=== PATIENT | female | born 1950 | race Caucasian/White ===

== ENCOUNTER → 2017-09-16 14:18 | Outpatient (CLI) | payer MEDICARE, SELFPAY ==
--- NOTE | 2017-09-16 14:30 | XR_ITS ---
XR ankle RT min 3V HISTORY: Severe left ankle pain ORDERING PHYSICIAN: Jessie Regalado DPM PATIENT AGE: 67 years COMPARISON: 02/17/2015 FINDINGS: There are severe osteoarthritic changes of the left ankle. There is widening of the distal shaft of the tibia consistent with an old fracture. The talus is tilted laterally with indentation upon the distal aspect of the tibia with loss of joint space and osteophyte formation with flattening of the talar dome. Osteosclerosis of the subtalar joint once again noted There is mild bowing of the distal tibia angled anteriorly. No acute fracture or dislocation evident. No destructive process. IMPRESSION: Deformity of the ankle which may be related to old trauma with posttraumatic severe osteoarthritic change with flattening and osteosclerosis of the talar dome and severe osteoarthritis of the posterior subtalar joint. Overall no significant change from the previous exam
--- NOTE | 2017-09-16 14:30 | XR_ITS ---
XR ankle LT min 3V HISTORY: Pain, ankle pain ORDERING PHYSICIAN: Jessie Regalado DPM PATIENT AGE: 67 years COMPARISON: None FINDINGS: Weightbearing views are performed No fracture or dislocation. No lytic or blastic change. There is normal mineralization.. The joint spaces are well-preserved. No significant degenerative/arthritic changes. No erosive changes evident. IMPRESSION: Negative left ankle, no acute finding
--- NOTE | 2017-09-16 14:30 | XR_ITS ---
XR foot RT min 3V HISTORY: Right foot pain ORDERING PHYSICIAN: Jessie Regalado DPM PATIENT AGE: 67 years COMPARISON: None FINDINGS: Weightbearing views are performed. Moderate hallux valgus with first metatarsophalangeal angle of 36 degrees with mild osteoarthritic changes of the first MTP joint and mild hypertrophic changes of the distal aspect of the first metatarsal. There is an old fracture of the mid aspect of the third third, fourth, and fifth metatarsals. Severe osteoarthritic changes are present at the ankle described in the ankle report. There is osteosclerosis of the mid aspect of the plantar surface of the calcaneus at 8 mm and could be due to bone island. No acute fracture or dislocation. IMPRESSION: 1. Hallux valgus with bunion formation and osteoarthritis of the first MTP joint 2. Old fractures of the third, fourth, and fifth metatarsals
--- NOTE | 2017-09-16 14:30 | XR_ITS ---
XR foot LT min 3V HISTORY: Left foot pain, history of foot surgery ORDERING PHYSICIAN: Jessie Regalado DPM PATIENT AGE: 67 years COMPARISON: 03/30/2016 FINDINGS: Weightbearing views are performed. There has been prior fusion of the first metatarsophalangeal joint with a dorsal bone plate present and apparent fusion of the bony elements. Hypertrophic changes are present at the sesamoid at the distal first metatarsal. Prior osteotomy of the distal aspect of the second and third metatarsals with healing of the osteotomies. Prior fusion of the second and third PIP joints. The distal phalanx of the third digit angles medially. At the fourth toe there is only a proximal distal phalanx. There may been prior fusion at the DIP of the fifth toe. No acute fracture or dislocation. IMPRESSION: Postsurgical changes of the left foot as described above with prior fusion at the first MTP joint and osteotomies at the second and third distal metatarsals. Please see above for detail
== END ==
PROVIDERS: Visit Provider Podiatrist
DX: M79.672 Pain in left foot (principal); M79.671 Pain in right foot; M25.572 Pain in left ankle and joints of left foot; M25.571 Pain in right ankle and joints of right foot
CPT/HCPCS: 73610; 73630

== ENCOUNTER → 2017-12-19 13:39 | Outpatient (CLI) | payer MEDICARE, SELFPAY ==
--- NOTE | 2017-12-19 13:47 | XR_ITS ---
XR hand RT min 3V HISTORY: ITS.REASON: RT FINGER PAIN ORDERING PHYSICIAN: Sheree Valle PATIENT AGE: 67 years Dysplastic changes are present involving the trapezium with osteoarthritis of the first metacarpal carpal joint. There is anterior subluxation of the proximal phalanx of the second, third, and fourth digits. Mild radial angulation involving the distal phalanx at the second third fourth and fifth digits. Osteoarthritic changes are present at the DIPs. No fracture or dislocation. IMPRESSION: Deformity of the hand as described above with anterior subluxation of the proximal phalanx of the second, third, and fourth fingers with osteoarthritis and dysplastic changes of the trapezium
== END ==
PROVIDERS: PCP Nurse Practitioner; Visit Provider Nurse Practitioner
DX: M79.644 Pain in right finger(s) (principal)
CPT/HCPCS: 73130

== ENCOUNTER → 2018-01-17 09:21 | Outpatient (POV) | payer MEDICARE, SELFPAY | PROVIDERS: Family Provider Nurse Practitioner; PCP Nurse Practitioner; Visit Provider Podiatrist | DX: Z00.00 Encounter for general adult medical examination without abnormal findings (principal) ==

== ENCOUNTER → 2018-01-21 13:08 | Outpatient (CLI) | payer MEDICARE, SELFPAY | PROVIDERS: PCP Nurse Practitioner; Visit Provider Orthopaedic Surgery | DX: M65.311 Trigger thumb, right thumb (principal) ==

== ENCOUNTER → 2018-02-04 14:05 | Outpatient (CLI) | payer MEDICARE, SELFPAY ==
--- NOTE | 2018-02-04 14:08 | XR_ITS ---
XR knee RT 4V HISTORY: ITS.REASON: Right knee pain ORDERING PHYSICIAN: Rigoberto Espinal MD PATIENT AGE: 67 years COMPARISON: None FINDINGS: Severe osteoarthritic changes are present at the medial compartment with loss of joint space, osteosclerosis, and mild osteophyte formation. Moderate osteoarthritic changes are present at the patellofemoral joint with small osteophytes. Osteophytes are also present at the medial aspect of the lateral compartment. There is mild valgus angulation of the tibia. Increased soft tissue density is present in the suprapatellar region consistent with knee joint effusion. There is some minimal depression of the medial tibial plateau. IMPRESSION: Severe osteoarthritis of the right knee at the medial compartment with osteoarthritic changes of the patellofemoral joint and small knee joint effusion
== END ==
PROVIDERS: PCP Nurse Practitioner; Visit Provider Orthopaedic Surgery
DX: M25.561 Pain in right knee (principal)
CPT/HCPCS: 73564

== ENCOUNTER → 2018-04-24 10:19 | Outpatient (POV) | payer MEDICARE, SELFPAY | PROVIDERS: Visit Provider Podiatrist | DX: Z00.00 Encounter for general adult medical examination without abnormal findings (principal) ==

== ENCOUNTER → 2018-05-22 09:40 | Outpatient (POV) | payer MEDICARE, SELFPAY | PROVIDERS: Visit Provider Podiatrist | DX: Z00.00 Encounter for general adult medical examination without abnormal findings (principal) ==

== ENCOUNTER → 2018-06-12 11:26 | Outpatient (POV) | payer MEDICARE, SELFPAY | PROVIDERS: Visit Provider Podiatrist | DX: Z00.00 Encounter for general adult medical examination without abnormal findings (principal) ==

== ENCOUNTER → 2018-06-26 09:43 | Outpatient (POV) | payer MEDICARE, SELFPAY | PROVIDERS: Visit Provider Podiatrist | DX: Z00.00 Encounter for general adult medical examination without abnormal findings (principal) ==

== ENCOUNTER → 2018-07-17 09:07 | Outpatient (POV) | payer MEDICARE, SELFPAY | PROVIDERS: Visit Provider Dentist | DX: Z00.00 Encounter for general adult medical examination without abnormal findings (principal) ==

== ENCOUNTER → 2020-05-19 18:21 | Outpatient (CLI) | payer MEDICARE, SELFPAY | PROVIDERS: Visit Provider Nurse Practitioner | DX: L60.2 Onychogryphosis (principal) | CPT/HCPCS: 87070; 87077; 87186; 87205 ==

== ENCOUNTER → 2020-09-26 17:17 | Outpatient (CLI) | payer MEDICARE, SELFPAY ==
[2020-09-26 17:36] LABS: Alanine Aminotransferase 15 U/L (12-78); Albumin Level 4.2 g/dl (3.5-5.0); Alkaline Phosphatase 106 U/L (38-126); Aspartate Amino Transferase 25 U/L (14-36); Bilirubin,Indirect 0.2 mg/dL (0.0-0.9); Bilirubin,Total 0.2 mg/dl (0.2-1.3); Bilirubin,Unconjugated 0.2 mg/dL (0.0-1.1); Blood Urea Nitrogen 14 mg/dl (7-17); Creatine Kinase 39 U/L (30-135); Estimated Glomerular Filt Rate 82 ml/min (>60); GFR (African American) 100 ML/MIN (>60)
[2020-09-26 17:39] LABS: Basophils # 0.1 K/mm3 (0-0.2); Basophils % 1.3 % (0.1-2.0); Eosinophils # 0.2 K/mm3 (0.0-0.4); Eosinophils % 5.4 % (0.1-12.0); Hematocrit 36.8 % (37.0-47.0); Hemoglobin 11.1 g/dL (12.2-16.2); Lymphocytes # 1.4 K/mm3 (0.7-4.5); Lymphocytes % 31.1 % (10-50); Mean Corpuscular HGB Conc 30.1 g/dL (31.8-35.4); Mean Corpuscular Hemoglobin 29.7 pg (27.0-31.2); Mean Corpuscular Volume 98.7 fl (81-99); Mean Platelet Volume 7.4 fl (7.4-10.4); Monocytes # 0.3 K/mm3 (0.1-1.0); Monocytes % 6.9 % (1.7-9.3); Neutrophils # 2.5 K/mm3 (1.8-7.8); Neutrophils % 55.4 % (37.0-80.0); Platelet Count 387 K/mm3 (142-424); Red Blood Count 3.72 M/mm3 (4.20-5.40); Red Cell Distribution Width 23.3 % (11.5-17.5); White Blood Count 4.5 K/mm3 (4.8-10.8)
[2020-09-26 17:41] LABS: C-Reactive Protein 4.1 mg/L (0-4)
== END ==
LOC: LAB 17:17 → LAB.DROPOF 17:21
PROVIDERS: Visit Provider Internal Medicine Infectious Disease
DX: M86.9 Osteomyelitis, unspecified (principal)
CPT/HCPCS: 80076; 82550; 82565; 84520; 85025; 86140

== ENCOUNTER → 2022-10-09 13:39 | Outpatient (CLI) | payer MEDICARE, SELFPAY ==
--- NOTE | 2022-10-09 13:54 | XR_ITS ---
FINAL REPORT TECHNIQUE: Chest PA & Lateral CLINICAL HISTORY: ACUTE Cough since having covid since june 2022, shortness of breath for three to four days. FINDINGS: 2 views of the chest were performed. There is mild cardiomegaly. There is an unfolded aorta. The mediastinum is within normal limits. There is coarse interstitial opacity of both lungs which is probably chronic. There are no pleural effusions. There is no pneumothorax. There is long segment posterior fusion hardware bridging the lower thoracic to mid lumbar spine. IMPRESSION: Coarse interstitial opacities in both lungs, probably chronic. Reviewed, Interpreted and Dictated by Deny Anne MD Transcribed by Trista Chopra Authenticated and [facility]
[2022-10-09 14:51] LABS: Basophils # 0.1 K/mm3 (0-0.2); Basophils % 1.1 % (0.1-2.0); Eosinophils # 0.1 K/mm3 (0.0-0.4); Eosinophils % 2.2 % (0.1-12.0); Hematocrit 21.4 % (37.0-47.0); Lymphocytes # 1.3 K/mm3 (0.7-4.5); Lymphocytes % 24.4 % (10-50); Mean Corpuscular Hemoglobin 20.3 pg (27.0-31.2); Mean Corpuscular Volume 72.6 fl (81-99); Mean Platelet Volume 7.7 fl (7.4-10.4); Monocytes # 0.3 K/mm3 (0.1-1.0); Monocytes % 6.1 % (1.7-9.3); Neutrophils # 3.5 K/mm3 (1.8-7.8); Neutrophils % 66.2 % (37.0-80.0); Platelet Count 600 K/mm3 (142-424); Red Blood Count 2.95 M/mm3 (4.20-5.40); Red Cell Distribution Width 18.2 % (11.5-17.5); White Blood Count 5.3 K/mm3 (4.8-10.8)
[2022-10-09 15:09] LABS: Alanine Aminotransferase 14 U/L (12-78); Albumin Level 3.8 g/dl (3.5-5.0); Albumin/Globulin Ratio 1.5 (1.1-1.8); Alkaline Phosphatase 106 U/L (38-126); Anion Gap 12.4 mEq/L (5-15); Aspartate Amino Transferase 23 U/L (14-36); Bilirubin,Total 0.4 mg/dl (0.2-1.3); Blood Urea Nitrogen 13 mg/dl (7-17); Calcium 8.6 mg/dl (8.4-10.2); Carbon Dioxide 24 mmol/L (22.0-30.0); Chloride 107 mmol/L (98-107); Estimated Glomerular Filt Rate 98 ml/min (>60); GFR (African American) 118 ML/MIN (>60); Globulin 2.6 g/dL (1.3-3.2); Glucose 96 mg/dl (74-100); Potassium 3.4 mmoL/L (3.5-5.1); Sodium 140 mmol/L (136-145); Total Protein,Serum 6.4 g/dl (6.3-8.2)
[2022-10-09 15:19] LABS: NT Pro Brain Natriuretic Pep. 7510 pg/mL (0-125)
[2022-10-09 15:40] LABS: Thyroid Stimulating Hormone 2.93 uIU/mL (0.465-4.68)
== END ==
PROVIDERS: PCP Nurse Practitioner Family; Visit Provider Nurse Practitioner Family
DX: R06.02 Shortness of breath (principal); R01.1 Cardiac murmur, unspecified; R05.1 Acute cough; R60.0 Localized edema
CPT/HCPCS: 36415; 71046; 80053; 83880; 84443; 85025

== ENCOUNTER 2022-10-11 15:52 | Observation (INO) | payer MEDICARE, SELFPAY ==
[2022-10-11] VITALS (16 sets, daily range): BP systolic 115–137; BP diastolic 61–94; PULSE 69–146; RESP 16–20; TEMP 36.4–37; O2SAT 94–98; BMI 23.4; BMI 24.4
--- NOTE | 2022-10-11 16:02 | ECG_ITS ---
APPROVED REPORT Exam: Resting ECG HR:100 bpm ECG Measurements Heart Rate 100 AXES [place] 140 P 53 QRSd 92 QRS 15 QT 353 T 76 QTc 410 Conclusion SINUS TACHYCARDIA WITH OCCASIONAL VENTRICULAR PREMATURE COMPLEXES WITH OCCASIONAL SUPRAVENTRICULAR PREMATURE COMPLEXES NONSPECIFIC ST & T-WAVE ABNORMALITY ABNORMAL RHYTHM ECG UNCONFIRMED REPORT Electronically signed by : Min De La Cruz MD 10/12/2022 17:02:20
--- NOTE | 2022-10-11 16:06 | HMH.EDGENADL ---
Discharge Plan Disposition Patient Disposition: Admitted As Inpatient Prescriptions Prescriptions: No Action alendronate-vitamin D3 [Fosamax Plus D] 70 mg- 2,800 unit tablet 1 tab PO QWEEK acetaminophen [Tylenol Arthritis Pain] 650 mg tablet extended release 650 mg PO ONCE esomeprazole magnesium 40 mg capsule,delayed release(DR/EC) 40 mg PO DAILY diclofenac sodium 1 % gel 4 g TOPICAL QID PRN (Reason: Pain) Rx Instructions: apply to single, ankle, foot; for foot includes sole/toes/top of foot Referrals Follow up/Referrals: Gita Bell APRN [Primary Care Provider] - See instructions Clinical Impressions Clinical Impression: Aortic stenosis, Heart failure with reduced ejection fraction, Anemia, Encounter for blood transfusion Discharge ED Provider: Cristina Beth General Adult HPI General Chief complaint: Shortness of Breath/Dyspnea Stated complaint: SOB Time Seen by Provider: 10/11/22 16:06 History of Present Illness HPI narrative: 72-year-old presenting from outpatient clinic after hemoglobin was demonstrated to be 6 on outside labs. She states that she has had increasing weakness and shortness of breath over the last week. States that her weakness preceded the shortness of breath. She also states that her doctor diagnosed her with heart failure but this is never been diagnosed in the past. She had hemoglobin of 6 and a BNP that was greater than 7000. Of note she states she was admitted several years ago at for a pathologic fracture at which point she had an echo because she had a very loud systolic murmur. I was able to look into her records at [facility] and found that she had moderate aortic stenosis at that time which was several years ago. She states she has not been told that she had any significant valvular disease and has not followed up any further to have a valve replacement or intervention. She denies any melena. She does state however she had to have a blood transfusion in the past at which point she was diagnosed with a bleeding peptic ulcer she denies any abdominal pain or postprandial pain today. Related Data Home Medications Medication Instructions Recorded Confirmed acetaminophen 650 mg 650 mg PO ONCE Pain 01/21/18 10/11/22 tablet,extended release (Tylenol Arthritis Pain) alendronate 70 mg-cholecalciferol 1 tab PO QWEEK Supplement 01/21/18 10/11/22 (vitamin D3) 2,800 unit tablet (Fosamax Plus D) esomeprazole magnesium 40 mg 40 mg PO DAILY GERD 08/15/22 10/11/22 capsule,delayed release diclofenac sodium 1 % topical gel 4 g topical QID PRN Pain 10/11/22 10/11/22 Allergies Allergy/AdvReac Type Severity Reaction Status Date / Time No Known Allergies Allergy Verified 08/15/22 11:22 [facility] Disclaimer: The information contained in this section may have been updated after the patient was seen, as this information can be updated by other users. Medical History Atrial fibrillation GERD (gastroesophageal reflux disease) HTN (hypertension), benign Surgical History History of cholecystectomy Family History Other Cancer Coronary artery disease Social History Smoking Status: Never smoker alcohol intake: never substance use type: denies use current occupational status: retired Travel in the last 8 weeks: None household members: spouse housing: house ROS Obtained: Yes All systems reviewed & no additional complaints except as documented Physical Exam General General appearance: alert Respiratory Respiratory exam: Present normal lung sounds bilaterally; Absent respiratory distress, wheezes or stridor Cardiovascular Cardiovascular exam: Present tachycardia and systolic murmur (3 out of 6 systo
--- NOTE | 2022-10-11 16:07 | PC.NURSE ---
warm blankets provided. spouse at bedside.
--- NOTE | 2022-10-11 16:22 | XR_ITS ---
PROCEDURE INFORMATION: Exam: XR Chest Exam date and time: 10/11/2022 4:46 PM Age: 72 years old Clinical indication: Shortness of breath; Patient HX: SOA, congestion, and tightness x 3 days; Additional info: Dyspnea TECHNIQUE: Imaging protocol: Radiologic exam of the chest. Views: 1 view. COMPARISON: CR XR CHEST 2V 10/09/2022 1:58 PM FINDINGS: Lungs: Interstitial perihilar and bibasilar opacities are more pronounced than on 10/09/2022. No confluent airspace consolidation. No vascular congestion. Pleural spaces: No pleural effusion. No pneumothorax. Heart/Mediastinum: Heart size is near the upper limits of normal. Bones/joints: Pedicle screws and support rods in the thoracolumbar spine have no evidence of loosening. IMPRESSION: Perihilar and bibasilar interstitial opacities have worsened since 10/09/2022 likely due to congestive heart failure. Viral or atypical pneumonia could have a similar appearance.
--- NOTE | 2022-10-11 16:23 | PC.NURSE ---
went in with Dr. Beth while he performed occult blood.
--- NOTE | 2022-10-11 16:27 | PC.NURSE ---
covid swab sent to lab. lab at bedside for type and cross.
[2022-10-11 16:33] LABS: Chloride 106 mmol/L (98-107); Potassium 3.1 mmoL/L (3.5-5.1); Sodium 144 mmol/L (136-145)
[2022-10-11 16:34] LABS: Basophils # 0.1 K/mm3 (0-0.2); Basophils % 0.9 % (0.1-2.0); Eosinophils # 0.2 K/mm3 (0.0-0.4); Hematocrit 22.2 % (37.0-47.0); Lymphocytes # 1.3 K/mm3 (0.7-4.5); Lymphocytes % 23.2 % (10-50); Mean Corpuscular Hemoglobin 20.5 pg (27.0-31.2); Mean Corpuscular Volume 73.3 fl (81-99); Mean Platelet Volume 8.7 fl (7.4-10.4); Monocytes # 0.4 K/mm3 (0.1-1.0); Monocytes % 6.8 % (1.7-9.3); Neutrophils # 3.6 K/mm3 (1.8-7.8); Neutrophils % 65.1 % (37.0-80.0); Platelet Count 673 K/mm3 (142-424); Red Blood Count 3.03 M/mm3 (4.20-5.40); White Blood Count 5.6 K/mm3 (4.8-10.8)
[2022-10-11 16:35] LABS: Blood Urea Nitrogen 15 mg/dl (7-17); Creatinine Clearance Estimated 42 mL/min (50-200); Estimated Glomerular Filt Rate 98 ml/min (>60); GFR (African American) 118 ML/MIN (>60)
[2022-10-11 16:36] LABS: Occult Blood,Stool Negative (Negative)
[2022-10-11 16:36] LABS: Coronavirus 19, PCR Not Detected (NotDetected); Influenza A, PCR Not Detected (NotDetected); Influenza B, PCR Not Detected (NotDetected)
[2022-10-11 16:36] LABS: Alanine Aminotransferase 18 U/L (12-78); Albumin Level 4.2 g/dl (3.5-5.0); Albumin/Globulin Ratio 1.4 (1.1-1.8); Alkaline Phosphatase 102 U/L (38-126); Anion Gap 18.1 mEq/L (5-15); Aspartate Amino Transferase 30 U/L (14-36); Bilirubin,Total 0.3 mg/dl (0.2-1.3); Calcium 8.6 mg/dl (8.4-10.2); Carbon Dioxide 23 mmol/L (22.0-30.0); Globulin 2.9 g/dL (1.3-3.2); Glucose 117 mg/dl (74-100); Total Protein,Serum 7.1 g/dl (6.3-8.2)
[2022-10-11 16:38] LABS: Lactic Acid 3.2 mmol/L (0.7-2.1)
--- NOTE | 2022-10-11 16:39 | PC.NURSE ---
Dr. Beth notified of pt's hemoglobin 6.2
[2022-10-11 16:40] LABS: Hemoglobin 6.2 g/dL (12.2-16.2)
[2022-10-11 16:44] LABS: D-Dimer 1.62 ug/mL (0.0-0.5)
[2022-10-11 16:46] LABS: NT Pro Brain Natriuretic Pep. 6350 pg/mL (0-125)
[2022-10-11 16:48] LABS: Troponin I 0.05 ng/ml (0.00-0.034)
--- NOTE | 2022-10-11 17:02 | EXP.HP ---
History of Present Illness *Admission Date: 10/11/22 *Reason for visit:: anemia *History of present illness: Ms. Ng is a 72 year old female with a past medical history of peptic ulcer disease, arthritis, GERD and HTN. She presented to the ED after being prompted by her PCP for a hgb level of 6.0 on 09/08/22. Hgb was 11.1 on 09/26/20. She thinks she had some dark bowel movements last weak. She has a history of a bleeding peptic ulcer a few years ago. She complains of having had generalized weakness, dyspnea and a dry cough over the past week. She's had a few weeks of worsening lower extremity edema. Denies fevers. Initial vitals: BP 115/61 - P 91 - RR 20 - SpO2 94% on RA - T 97.6 degrees F Initial workup: CBC with hgb 6.2, MCV 73 CMP with K 3.1, BUN 115, Cr 0.6 lactate 3.2 troponin I 0.05 BNP 6350 Stool occult blood negative covid-19 and flu pcr studies are negative cxr - Perihilar and bibasilar interstitial opacities have worsened since 10/09/2022 likely due to congestive heart failure. Viral or atypical pneumonia could have a similar appearance. [facility] Disclaimer: The information contained in this section may have been updated after the patient was seen, as this information can be updated by other users. Medical History Atrial fibrillation GERD (gastroesophageal reflux disease) HTN (hypertension), benign Surgical History History of cholecystectomy Family History Other Cancer Coronary artery disease Social History (Updated 10/11/22 @ 18:09 by Guerda Meng RN) Smoking Status: Never smoker alcohol intake: never substance use type: denies use current occupational status: retired Travel in the last 8 weeks: None household members: spouse housing: house Meds Home Medications and Allergies Home Medications Medication Instructions Recorded Confirmed Type acetaminophen 650 mg 650 mg PO ONCE Pain 01/21/18 10/11/22 History tablet,extended release (Tylenol Arthritis Pain) alendronate 70 mg-cholecalciferol 1 tab PO QWEEK Supplement 01/21/18 10/11/22 History (vitamin D3) 2,800 unit tablet (Fosamax Plus D) esomeprazole magnesium 40 mg 40 mg PO DAILY GERD 08/15/22 10/11/22 History capsule,delayed release diclofenac sodium 1 % topical gel 4 g topical QID PRN Pain 10/11/22 10/11/22 History New Prescriptions to Start Prescriptions: Allergies Allergy/AdvReac Type Severity Reaction Status Date / Time No Known Allergies Allergy Verified 08/15/22 11:22 Exam Data for Last 24 hours Vital signs and Labs for Last 24 Hours: Temp Pulse Resp BP Pulse Ox 97.6 F 85 18 121/71 98 10/11/22 16:10 10/11/22 16:30 10/11/22 16:30 10/11/22 16:30 10/11/22 16:30 Laboratory Results - last 24 hr 10/11/22 16:01: WBC 5.6, RBC 3.03 L, Hgb 6.2 L*, Hct 22.2 L, MCV 73.3 L, MCH 20.5 L, MCHC 28.0 L, RDW 18.0 H, Plt Count 673 H, MPV 8.7, Neut % (Auto) 65.1, Lymph % (Auto) 23.2, [place] % (Auto) 6.8, Eos % (Auto) 4.0, Baso % (Auto) 0.9, Neut # (Auto) 3.6, Lymph # (Auto) 1.3, [place] # (Auto) 0.4, Eos # (Auto) 0.2, Baso # (Auto) 0.1 10/11/22 16:01: Sodium 144, Potassium 3.1 L, Chloride 106, Carbon Dioxide 23, Anion Gap 18.1 H, BUN 15, Creatinine 0.60, Estimated Creat Clear 42, Estimated GFR 98, Est GFR ( Amer) 118, Glucose 117 H, Calcium 8.6, Magnesium 2.0, Total Bilirubin 0.3, AST 30 D, ALT 18 D, Alkaline Phosphatase 102, Troponin I 0.05 H, Total Protein 7.1, Albumin 4.2, Globulin 2.9, Albumin/Globulin Ratio 1.4 10/11/22 16:01: Lactate 3.2 H 10/11/22 16:01: NT-Pro-B Natriuret Pep 6350 H 10/11/22 16:01: D-Dimer 1.62 H 10/11/22 16:21: Stool Occult Blood Negative 10/11/22 16:24: SARS-CoV-2 (PCR) Not detected, Influenza A Untype (PCR) Not detected, Influenza Type B (PCR) Not detected 10/11/22 16:30: Crossmatch (AHG) See Detail
--- NOTE | 2022-10-11 17:22 | PC.NURSE ---
Report provided to Guerda Ragsdale RN
[2022-10-11 18:20] LABS: Microscopic, Urine URINE MICROSCOPIC (MICROSCOPIC)
[2022-10-11 18:33] LABS: Appearance,Urine CLEAR (Clear); Bilirubin,Urine Negative (Negative); Blood, Urine Negative (Negative); Color,Urine YELLOW (Yellow); Glucose,Urine (UA) Negative (Negative); Ketones,Urine Negative (Negative); Leukocyte Esterase,Urine Negative (Negative); Nitrate,Urine Negative (Negative); Protein,Urine Negative (Negative); Urobilinogen,Urine 0.2 EU/dl (0.2)
[2022-10-11 20:19] LABS: Troponin I 0.06 ng/ml (0.00-0.034)
[2022-10-11 20:23] LABS: Reflex Lactic Add Lactic Reflex
--- NOTE | 2022-10-11 22:13 | ECG_ITS ---
APPROVED REPORT Exam: Resting ECG HR:145 bpm ECG Measurements Heart Rate 145 AXES QRSd 89 QRS 53 QT 333 T 0 QTc 417 Conclusion ATRIAL FIBRILLATION WITH RAPID VENTRICULAR RESPONSE NONSPECIFIC ST & T-WAVE ABNORMALITY ABNORMAL RHYTHM ECG UNCONFIRMED REPORT Electronically signed by : Min De La Cruz MD 10/12/2022 17:01:47
[2022-10-11 22:48] LABS: Troponin I 0.07 ng/ml (0.00-0.034)
[2022-10-11 22:52] LABS: Chloride 104 mmol/L (98-107); Sodium 142 mmol/L (136-145)
[2022-10-11 22:55] LABS: Hematocrit 25.5 % (37.0-47.0)
[2022-10-11 22:55] LABS: Blood Urea Nitrogen 12 mg/dl (7-17); Creatinine Clearance Estimated 44 mL/min (50-200); Estimated Glomerular Filt Rate 121 ml/min (>60); GFR (African American) 146 ML/MIN (>60)
[2022-10-11 22:56] LABS: Calcium 8.2 mg/dl (8.4-10.2); Carbon Dioxide 26 mmol/L (22.0-30.0); Glucose 100 mg/dl (74-100); Magnesium 1.8 mg/dl (1.6-2.3)
[2022-10-11 23:02] LABS: Hemoglobin 7.5 g/dL (12.2-16.2)
--- NOTE | 2022-10-11 23:56 | PC.NURSE ---
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 labs were ordered as well as medications, see sep. vss 129/74 p146 rr18 t98.3 02 sat 98%, no acute distress, pt denies chestpain.
[2022-10-12] VITALS (30 sets, daily range): BP systolic 88–129; BP diastolic 49–85; PULSE 62–145; RESP 14–22; TEMP 36.3–37.1; O2SAT 93–100; BMI 24.2
--- NOTE | 2022-10-12 01:56 | PC.NURSE ---
0130 was noted pt converted back into NSR with rate 80, Sosa johnson aprn aware.
--- NOTE | 2022-10-12 04:30 | PC.NURSE ---
post h/h will be drawn with am labs
--- NOTE | 2022-10-12 05:50 | PC.NURSE ---
pt tolerated blood transfusions this shift, pt with episode of afib with rvr and converted to sinus this am after metoprolol and electrolyte replacement, pt up with assist x1 with walker, pt requires 1 assist. pt is alert and oriented x4, vss at this time, pt voiding without difficulty, 3+ pitting edema to ble, lung sounds diminished, 02 sats 95-97% on room air.
[2022-10-12 06:37] LABS: Basophils % 0.5 % (0.1-2.0); Eosinophils # 0.2 K/mm3 (0.0-0.4); Hematocrit 28.1 % (37.0-47.0); Lymphocytes # 0.9 K/mm3 (0.7-4.5)
[2022-10-12 06:42] LABS: Chloride 108 mmol/L (98-107); Sodium 141 mmol/L (136-145)
[2022-10-12 06:45] LABS: Blood Urea Nitrogen 10 mg/dl (7-17); Creatinine Clearance Estimated 44 mL/min (50-200); Estimated Glomerular Filt Rate 121 ml/min (>60); GFR (African American) 146 ML/MIN (>60); Iron 28 ug/dL (37-170); Magnesium 2.5 mg/dl (1.6-2.3)
[2022-10-12 06:46] LABS: Carbon Dioxide 24 mmol/L (22.0-30.0); Glucose 91 mg/dl (74-100)
[2022-10-12 06:53] LABS: Eosinophils % 3.5 % (0.1-12.0); Lymphocytes % 17.2 % (10-50); Mean Corpuscular HGB Conc 30.5 g/dL (31.8-35.4); Mean Corpuscular Hemoglobin 23.2 pg (27.0-31.2); Mean Corpuscular Volume 76.1 fl (81-99); Mean Platelet Volume 7.6 fl (7.4-10.4); Monocytes # 0.4 K/mm3 (0.1-1.0); Neutrophils # 3.6 K/mm3 (1.8-7.8); Neutrophils % 71.8 % (37.0-80.0); Platelet Count 557 K/mm3 (142-424); Red Blood Count 3.69 M/mm3 (4.20-5.40); Red Cell Distribution Width 19.3 % (11.5-17.5); White Blood Count 5.1 K/mm3 (4.8-10.8)
[2022-10-12 06:55] LABS: NT Pro Brain Natriuretic Pep. 5500 pg/mL (0-125); Total Iron Binding Capacity 486 ug/dL (265-497)
[2022-10-12 07:00] LABS: Hemoglobin 8.6 g/dL (12.2-16.2)
--- NOTE | 2022-10-12 07:00 | XR_ITS ---
FINAL REPORT CLINICAL HISTORY: chf exac COMPARISON: 10/11/2022 FINDINGS: TWO-VIEW CHEST There is mild cardiomegaly. The mediastinum is normal. There is an unfolded aorta. There is coarse interstitial opacity at the lung bases, left greater than right, probably chronic. Previously noted superimposed interstitial opacity is consistent with resolved edema. There is no pneumothorax. There is long segment posterior fusion hardware bridging the lower thoracic to the lower lumbar spine. IMPRESSION: Chronic fibrosis, more evident on the left than right. Reviewed, Interpreted and Dictated by Deny Anne MD Transcribed by Liza Dumont Authenticated and [facility]
[2022-10-12 07:22] LABS: Ferritin 5.93 ng/ml (11.1-264)
--- NOTE | 2022-10-12 07:38 | HMH.PHAINT1 ---
Pharmacy Intervention Comments: HOME MEDICATION LIST VERIFIED USING LIST FROM OUTPATIENT PHARMACY AND PT INTERVIEW BY NURSING
--- NOTE | 2022-10-12 07:56 | EXP.PN ---
Subjective *Date: 10/12/22 *Time: 10:21 Interval history: Overnight the patient went into afib with RVR which resolved shortly after a dose of IV metoprolol. She received 2 units of PRBCs. vitals have been stable overnight. I/O +1.2/-3.7L Hgb increased from 6.2 to 8.6 Potassium level increased from 3.1 to 4.0. Mg is 2.5 ferritin is low at 5.93 andiron saturation is low at 5% Troponin I has been stable lactic acid is now within normal limits BNP has come down from 6350 to 5500 The patient has had less shortness of breath compared to yesterday. She ambulated within her room. She denies chest pain. Exam Data for Last 24 hours Vital signs and Labs for Last 24 Hours: Temp Pulse Resp BP Pulse Ox 98.3 F 84 18 117/67 95 10/12/22 05:15 10/12/22 05:15 10/12/22 05:15 10/12/22 05:15 10/12/22 05:15 Laboratory Results - last 24 hr 10/11/22 16:01: WBC 5.6, RBC 3.03 L, Hgb 6.2 L*, Hct 22.2 L, MCV 73.3 L, MCH 20.5 L, MCHC 28.0 L, RDW 18.0 H, Plt Count 673 H, MPV 8.7, Neut % (Auto) 65.1, Lymph % (Auto) 23.2, Yell % (Auto) 6.8, Eos % (Auto) 4.0, Baso % (Auto) 0.9, Neut # (Auto) 3.6, Lymph # (Auto) 1.3, Yell # (Auto) 0.4, Eos # (Auto) 0.2, Baso # (Auto) 0.1 10/11/22 16:01: Sodium 144, Potassium 3.1 L, Chloride 106, Carbon Dioxide 23, Anion Gap 18.1 H, BUN 15, Creatinine 0.60, Estimated Creat Clear 42, Estimated GFR 98, Est GFR ( Amer) 118, Glucose 117 H, Calcium 8.6, Magnesium 2.0, Total Bilirubin 0.3, AST 30 D, ALT 18 D, Alkaline Phosphatase 102, Troponin I 0.05 H, Total Protein 7.1, Albumin 4.2, Globulin 2.9, Albumin/Globulin Ratio 1.4 10/11/22 16:01: Lactate 3.2 H 10/11/22 16:01: NT-Pro-B Natriuret Pep 6350 H 10/11/22 16:01: D-Dimer 1.62 H 10/11/22 16:01: Blood Type Confirm A Positive 10/11/22 16:21: Stool Occult Blood Negative 10/11/22 16:24: SARS-CoV-2 (PCR) Not detected, Influenza A Untype (PCR) Not detected, Influenza Type B (PCR) Not detected 10/11/22 16:30: Blood Type A Positive, Antibody Screen Negative, Crossmatch (AHG) See Detail 10/11/22 18:17: Urine Color Yellow, Urine Appearance Clear, Urine pH 6.0, Ur Specific [place] 1.010, Urine Protein Negative, Urine Glucose (UA) Negative, Urine Ketones Negative, Urine Blood Negative, Urine Nitrate Negative, Urine Bilirubin Negative, Urine Urobilinogen 0.2, Ur Leukocyte Esterase Negative, Urine RBC None, Urine WBC None, Urine Bacteria None 10/11/22 19:30: Troponin I 0.06 H 10/11/22 20:30: Lactate 2.0 10/11/22 22:24: Troponin I 0.07 H 10/11/22 22:24: Sodium 142, Potassium 3.0 L, Chloride 104, Carbon Dioxide 26, Anion Gap 15.0, BUN 12, Creatinine 0.50 L, Estimated Creat Clear 44, Estimated GFR 121, Est GFR ( Amer) 146 D, Glucose 100, Calcium 8.2 L, Magnesium 1.8 10/11/22 22:25: Hgb 7.5 L D, Hct 25.5 L 10/12/22 06:21: WBC 5.1, RBC 3.69 L, Hgb 8.6 L D, Hct 28.1 L, MCV 76.1 L, MCH 23.2 L, MCHC 30.5 L, RDW 19.3 H, Plt Count 557 H, MPV 7.6, Neut % (Auto) 71.8, Lymph % (Auto) 17.2, Yell % (Auto) 7.0, Eos % (Auto) 3.5, Baso % (Auto) 0.5, Neut # (Auto) 3.6, Lymph # (Auto) 0.9, Yell # (Auto) 0.4, Eos # (Auto) 0.2, Baso # (Auto) 0.0 10/12/22 06:21: Sodium 141, Potassium 4.0 D, Chloride 108 H, Carbon Dioxide 24, Anion Gap 13.0, BUN 10, Creatinine 0.50 L, Estimated Creat Clear 44, Estimated GFR 121, Est GFR ( Amer) 146, Glucose 91, Calcium 8.0 L 10/12/22 06:21: Iron 28 L, TIBC 486, Iron Saturation 5.88852 L, Ferritin 5.93 L 10/12/22 06:21: Lactate 1.0 10/12/22 06:21: Magnesium 2.5 H D 10/12/22 06:21: NT-Pro-B Natriuret Pep 5500 H I & O for Last 24 hours: Intake & Output 10/09/22 10/10/22 10/11/22 10/12/22 23:59 23:59 23:59 23:59 Intake Total 250 / 250 990 / 990 Output Total 3150 / 3150 600 / 600 Balance -2900 / -2900 390 / 390 Weight 56.756 kg 55.877 kg Constitutional Constitutional: no acute distress *Routine HEENT Exam Head: Present normocephalic Eye: Present EOMI and PERRL ENT: Present mucous membranes moist *Routine Neck Exam Neck: Present supple; Ab
[2022-10-12 08:49] LABS: Vitamin B12 768 pg/mL (239-931)
--- NOTE | 2022-10-12 09:29 | EXP.SURG.CON ---
History of Present Illness *Admission Date: 10/11/22 *Reason for visit:: Anemia *History of present illness: The following is obtained from the hospitalist admission history and physical: Ms. Ng is a 72 year old female with a past medical history of peptic ulcer disease, arthritis, GERD and HTN. She presented to the ED after being prompted by her PCP for a hgb level of 6.0 on 09/08/22. Hgb was 11.1 on 09/26/20. She thinks she had some dark bowel movements last weak. She has a history of a bleeding peptic ulcer a few years ago. She complains of having had generalized weakness, dyspnea and a dry cough over the past week. She's had a few weeks of worsening lower extremity edema. Denies fevers. Initial vitals: BP 115/61 - P 91 - RR 20 - SpO2 94% on RA - T 97.6 degrees F Initial workup: CBC with hgb 6.2, MCV 73 CMP with K 3.1, BUN 115, Cr 0.6 lactate 3.2 troponin I 0.05 BNP 6350 Stool occult blood negative covid-19 and flu pcr studies are negative cxr - Perihilar and bibasilar interstitial opacities have worsened since 10/09/2022 likely due to congestive heart failure. Viral or atypical pneumonia could have a similar appearance. I have performed EGD and colonoscopy on the patient on 04/04/2010 for anemia and she was found to have a pyloric channel ulcer with positive H. pylori. She had a follow-up EGD done on 08/01/2010 which revealed healed ulcer with some gastritis. Patient is on Nexium. Patient was transfused with 2 units packed red blood cells with good response. [facility] Disclaimer: The information contained in this section may have been updated after the patient was seen, as this information can be updated by other users. Medical History Atrial fibrillation GERD (gastroesophageal reflux disease) HTN (hypertension), benign Surgical History History of cholecystectomy Family History Other Cancer Coronary artery disease Social History Smoking Status: Never smoker alcohol intake: never substance use type: denies use current occupational status: retired Travel in the last 8 weeks: None household members: spouse housing: house Meds Home Medications and Allergies Home Medications Medication Instructions Recorded Confirmed Type acetaminophen 650 mg 650 mg PO NEEDED PRN Pain 01/21/18 10/12/22 History tablet,extended release (Tylenol Arthritis Pain) alendronate 70 mg-cholecalciferol 1 tab PO WEEKLY osteoporosis 01/21/18 10/12/22 History (vitamin D3) 2,800 unit tablet prevention (Fosamax Plus D) esomeprazole magnesium 40 mg 40 mg PO DAILY Acid reflux 08/15/22 10/11/22 History capsule,delayed release diclofenac sodium 1 % topical gel 4 g topical QID PRN Pain 10/11/22 10/11/22 History New Prescriptions to Start Prescriptions: Allergies Allergy/AdvReac Type Severity Reaction Status Date / Time No Known Allergies Allergy Verified 08/15/22 11:22 Exam (Inpt) Vital signs and Labs for Last 24 Hours: Temp Pulse Resp BP Pulse Ox 98.2 F 83 22 114/64 99 10/12/22 08:00 10/12/22 08:00 10/12/22 08:00 10/12/22 08:00 10/12/22 08:00 Laboratory Results - last 24 hr 10/11/22 16:01: WBC 5.6, RBC 3.03 L, Hgb 6.2 L*, Hct 22.2 L, MCV 73.3 L, MCH 20.5 L, MCHC 28.0 L, RDW 18.0 H, Plt Count 673 H, MPV 8.7, Neut % (Auto) 65.1, Lymph % (Auto) 23.2, [place] % (Auto) 6.8, Eos % (Auto) 4.0, Baso % (Auto) 0.9, Neut # (Auto) 3.6, Lymph # (Auto) 1.3, [place] # (Auto) 0.4, Eos # (Auto) 0.2, Baso # (Auto) 0.1 10/11/22 16:01: Sodium 144, Potassium 3.1 L, Chloride 106, C
--- NOTE | 2022-10-12 10:15 | EXP.ANES.CKL ---
[facility] Disclaimer: The information contained in this section may have been updated after the patient was seen, as this information can be updated by other users. Medical History Atrial fibrillation GERD (gastroesophageal reflux disease) HTN (hypertension), benign Surgical History History of cholecystectomy Family History Other Cancer Coronary artery disease Social History Smoking Status: Never smoker alcohol intake: never substance use type: denies use current occupational status: retired Travel in the last 8 weeks: None household members: spouse housing: house [facility] Anesthesia Checklist Patient Identification Patient Identification: Arm Band and Verbal (Name & ) Structural Data Admitted From: Inpatient Planned Operative Procedure/s: EGD Consent for Planned Operative Procedure(s) Verified: Yes NPO Status Verified Time NPO: 00:00 Chart Verification Results Verified: CBC Airway Assessment C-Spine Mobility Assessed: Yes TMJ Mobility Assessed: Yes Dentition: Good Dentition Neurological Assessment Level of Consciousness: Awake Hx Seizures: No Numbness or tingling in extremities: No Anesthesia Plan Anesthesia Risk discussed: Yes Anesthesia Plan: Verified ASA Class: IV (IV E) Anesthesia Type: MAC
--- NOTE | 2022-10-12 10:48 | HMH.SCOPE ---
Procedure: Date: 10/12/22 Patient Date of :: 1950 Procedure Performed:: Esophagogastroduodenoscopy Indications:: Patient is a 72-year-old with history of GERD, peptic ulcer disease, arthritis, hypertension. She had apparently undergone outpatient blood work which revealed some significant anemia. She was sent to the emergency department. She denies any definite passage of blood per rectum with no definite symptoms of melena or hematochezia. Evaluation in the emergency department revealed hemoglobin of 6.2. Prior hemoglobin in 2020 was 11. She has a BN P of 6350. She was admitted for inpatient management. Of note, stool for Hemoccult was negative. She was transfused 2 units packed red blood cells with appropriate response. Of note, the patient underwent EGD and colonoscopy on 04/04/2010 for anemia and she was found to have pyloric channel ulcer and positive H. pylori. She had a follow-up EGD done on 08/01/2010 which revealed healed pyloric channel ulcer. Performing Provider:: Dennis Kaplan MD Referring Provider:: Gita Bell Sedation:: MAC sedation Procedure:: Consent was obtained patient was taken to endoscopy procedure room. She was positioned in lateral decubitus position. Adequate intravenous sedation was achieved with anesthesia titration of propofol. Olympus endoscope was inserted via the oropharynx and the esophagus was cannulated. She had some minimal cricopharyngeal spasm. There were findings likely consistent with esophageal dysmotility. Gastroesophageal junction was encountered. Stomach was cannulated and insufflated. There was a relatively large amount of retained food matter and undigested vegetable matter in the gastric lumen. Retroflexion revealed small to moderate hiatal hernia. There were findings of some significant inflammation with patchy exudative nodules at the pylorus with some findings of significant pyloric stenosis. There was noted to be a pyloric channel ulcer which showed no evidence of any stigmata of recent bleeding or active bleeding. At this time patient had some transient oxygen desaturation and the endoscope was withdrawn. Once adequate oxygenation was reestablished procedure was resumed with reinsertion of the endoscope. Carefully ultimately the endoscope was able to be advanced through the pyloric channel. The distal duodenum appeared unremarkable. There was however a large amount of retained vegetable matter and food matter in the duodenal bulb. Biopsies were not obtained at this time. Stomach was desufflated and the endoscope was withdrawn. Findings:: Small to moderate sliding hiatal hernia Diffuse gastritis Appreciable amount of retained food and vegetable matter in the gastric lumen Moderately large pyloric channel ulcer Pyloric stenosis secondary to pyloric channel ulcer Recommendations:: Recommend continuing high-dose proton pump inhibitors. Given potential for gastric outlet obstruction with healing of the ulcer recommend maintaining limited diet, ultimately no more than low residue. Complications:: None immediately apparent Estimated blood obtained (mL): 1
--- NOTE | 2022-10-12 12:07 | EXP.CARD.CON ---
History of Present Illness History of Present Illness Consult date: 10/12/22 Requesting physician: Maximo Douglas Consult reason: atrial fibrillation and shortness of breath Chief complaint: New CHF, A. fib and Cardiomyopathy with aortic valve disease Additional Medical History:: 1. History of prior gastric ulcer several years ago treated with medications 2. Arthritis with history of chronic NSAID use 3. Acute shortness of breath, 10/2022, multifactorial including severe aortic valve disease, new onset cardiomyopathy resulting in new onset systolic congestive heart failure in conjunction with marked anemia with hemoglobin of 6. A. Echo, 10/12/2022, EF 30-35% with severe B. Transfused 2 units of blood History of present illness: 72-year-old white female admitted for marked anemia, 1 week history of shortness of breath, cough and lower extremity edema. Patient has been transfused 2 units of blood overnight with current hemoglobin of 8.6 today. EGD was performed earlier today with findings of small to moderate sliding hiatal hernia, diffuse gastritis, appreciable amount of retained food and vegetable matter in the gastric lumen, moderately large pyloric channel ulcer, pyloric stenosis secondary to pyloric channel ulcer. Recommendation for high-dose PPI therapy and low residue diet. Patient states she does feel slightly improved after receiving blood. Echocardiogram today preliminary results show ejection fraction in the 30-35% range with moderate to severe aortic valve disease. Patient does relate history of cardiac murmur with prior evaluation at the [facility] a few years ago. She has had no further follow-up at Patient did have episode of A-fib with rapid ventricular response that responded to a dose of IV metoprolol this morning. She is maintaining sinus rhythm at this time. Cardiology consulted for evaluation and recommendations. [facility] Disclaimer: The information contained in this section may have been updated after the patient was seen, as this information can be updated by other users. Medical History Atrial fibrillation GERD (gastroesophageal reflux disease) HTN (hypertension), benign Surgical History History of cholecystectomy Family History Other Cancer Coronary artery disease Social History Smoking Status: Never smoker alcohol intake: never substance use type: denies use current occupational status: retired Travel in the last 8 weeks: None household members: spouse housing: house Review of Systems Review of Systems Review of systems:: pertinent systems reviewed and negative unless documented below Constitutional Constitutional: Reports lethargy and Reports weakness *Cardiovascular Cardiovascular: Denies chest pain, Reports dyspnea and Reports dyspnea on exertion *Respiratory Respiratory: Reports cough, Reports dyspnea and Reports dyspnea on exertion *Gastrointestinal Gastrointestinal: Reports melena *Neurologic Neurologic: Reports weakness Exam Data for Last 24 hours Vital signs and Labs for Last 24 Hours: Temp Pulse Resp BP Pulse Ox 98.1 F 62 17 96/59 L 94 L 10/12/22 10:51 10/12/22 11:20 10/12/22 11:20 10/12/22 11:20 10/12/22 11:20 Laboratory Results - last 24 hr 10/11/22 16:01: WBC 5.6, RBC 3.03 L, Hgb 6.2 L*, Hct 22.2 L, MCV 73.3 L, MCH 20.5 L, MCHC 28.0 L, RDW 18.0 H, Plt Count 673 H, MPV 8.7, Neut % (Auto) 65.1, Lymph % (Auto) 23.2, [place] % (Auto) 6.8, Eos % (Auto) 4.0, Baso % (Auto) 0.9, Neut # (Auto) 3.6, Lymph # (Auto) 1.3, [place] # (Auto) 0.4, Eos # (Auto) 0.2, Baso # (Auto) 0.1 10/11/22 16:01: Sodium 144, Potassium 3.1 L, Chloride 106, Carbon Dioxide 23, Anion Gap 18.1 H, BUN 15, Creatinine 0.60, Estimated Creat Clear 42, Estimated GFR 98, E
--- NOTE | 2022-10-12 17:48 | EXP.DC.SUM ---
General Admission date:: 10/11/22 Discharge date: 10/12/22 HPI HPI HPI: Ms. Ng is a 72 year old female with a past medical history of peptic ulcer disease, arthritis,? GERD and HTN. She presented to the ED after being prompted by her PCP for a hgb level of 6.0 on 09/08/22. Hgb was 11.1 on 09/26/20. She thinks she had some dark bowel movements last weak. She has a history of a bleeding peptic ulcer a few years ago. She complains of having had generalized weakness, dyspnea and a dry cough over the past week. She's had a few weeks of worsening lower extremity edema. Denies fevers. Initial vitals: BP 115/61 - P 91 - RR 20 - SpO2 94% on RA - T 97.6 degrees F Initial workup: CBC with hgb 6.2, MCV 73 CMP with K 3.1, BUN 115, Cr 0.6 lactate 3.2 troponin I 0.05 BNP 6350 Stool occult blood negative covid-19 and flu pcr studies are negative cxr -?Perihilar and bibasilar interstitial opacities have worsened since 10/09/2022 likely due to congestive heart failure. Viral or atypical pneumonia could have a similar appearance.. Hospital Course Hospital Course Hospital Course: The patient was transfused 2 units of PRBCs. she was started on high dose ppi. iron studies revealed that she is iron deficient. General surgery was consulted and performed an EGD with findings: Small to moderate sliding hiatal hernia Diffuse gastritis Appreciable amount of retained food and vegetable matter in the gastric lumen Moderately large pyloric channel ulcer Pyloric stenosis secondary to pyloric channel ulcer Recommendations: Recommend continuing high-dose proton pump inhibitors.? Given potential for gastric outlet obstruction with healing of the ulcer recommend maintaining limited diet, ultimately no more than low residue. Procedure: Consent was obtained patient was taken to endoscopy procedure room.? She was positioned in lateral decubitus position.? Adequate intravenous sedation was achieved with anesthesia titration of propofol.? Olympus endoscope was inserted via the oropharynx and the esophagus was cannulated.? She had some minimal cricopharyngeal spasm.? There were findings likely consistent with esophageal dysmotility.? Gastroesophageal junction was encountered.? Stomach was cannulated and insufflated.? There was a relatively large amount of retained food matter and undigested vegetable matter in the gastric lumen.? Retroflexion revealed small to moderate hiatal hernia.? There were findings of some significant inflammation with patchy exudative nodules at the pylorus with some findings of significant pyloric stenosis.? There was noted to be a pyloric channel ulcer which showed no evidence of any stigmata of recent bleeding or active bleeding.? At this time patient had some transient oxygen desaturation and the endoscope was withdrawn.? Once adequate oxygenation was reestablished procedure was resumed with reinsertion of the endoscope.? Carefully ultimately the endoscope was able to be advanced through the pyloric channel.? The distal duodenum appeared unremarkable.? There was however a large amount of retained vegetable matter and food matter in the duodenal bulb.? Biopsies were not obtained at this time.? Stomach was desufflated and the endoscope was withdrawn. The patient was also diuresed with IV lasix because of clinical diagnosis of CHF with exacerbation and her symptoms of dyspnea and lower extremity edema decreased. An echocardiogram revealed moderate aortic stenosis, peak gradient 40mmHg, mean gradient 22mmHg, LVEF 41%, grade 2 diastolic dysfunction. Cardiology was consulted and initiated transfer to for possible TAVR. #aortic stenosis #HFrEF exacerbation (new diagnosis of CHF) #iron deficiency anemia with pyloric channel ulcer s/p 2u PRBC transfusion #paroxysmal atrial fibrillation not on anticoagulation #history of arthritis with NSAID use Exam Data for Last 24 hours Vital signs and Labs for Last 24 Hours: Temp Pulse Resp BP Pulse Ox 98.4 F 86 20
--- NOTE | 2022-10-12 18:10 | PC.NURSE ---
[id number]- nurse unavailable for report
--- NOTE | 2022-10-12 19:11 | PC.NURSE ---
pt left floor with ems at this time
== END 2022-10-12 19:10 | disposition short-term general hospital (02) ==
LOC: ER 16:41 → 2ND 17:44
PROVIDERS: Nurse Practitioner Acute Care; Surgery; Admitting Provider Internal Medicine; Emergency Provider Student in an Organized Health Care Education/Training Program; PCP Nurse Practitioner Family; Visit Provider Internal Medicine
PROC: 0DJ08ZZ Inspection of Upper Intestinal Tract, Via Natural or Artificial Opening Endoscopic (ICD-10-PCS; CPT 43235; principal; 2022-10-12 10:30)
DX: I50.20 Unspecified systolic (congestive) heart failure; I35.0 Nonrheumatic aortic (valve) stenosis; I48.0 Paroxysmal atrial fibrillation; K29.70 Gastritis, unspecified, without bleeding; I11.0 Hypertensive heart disease with heart failure; I42.9 Cardiomyopathy, unspecified; R06.02 Shortness of breath; D50.9 Iron deficiency anemia, unspecified; Z20.822 Contact with and (suspected) exposure to COVID-19; Z79.899 Other long term (current) drug therapy; K25.9 Gastric ulcer, unspecified as acute or chronic, without hemorrhage or perforation; K44.9 Diaphragmatic hernia without obstruction or gangrene
CPT/HCPCS: 43235; G0378; 36415; 71045; 71046; 80048; 80053; 81001; 82272; 82607; 82728; 82746; 83540; 83550; 83605; 83735; 83880; 84484; 85014; 85018; 85025; 85378; 86850; 93005; 93306; 99285; C9803; G0328; J3475; P9016; U0003; U0005